=== PATIENT | female | born 1980 | race Caucasian/White ===

== ENCOUNTER 2020-11-01 12:01 | Emergency (ER) | payer OTHER ==
[~2020-11-01 12:01] MED LIST: CLEOCIN HCL300 MG PO; CLEOCIN40 GM TOP; FELDENE10 MG PO; IMODIUM CAP 2 MG2 MG PO; LODINE CAP 300300 MG PO; MUCINEX DM ER1 EACH PO; OMNICEF 300 MG300 MG PO; ZOFRAN ODT 4 MG4 MG PO
[2020-11-01] MEDS ORDERED: SUDAFED 60 MG T60 MG PO (13:38)
[2020-11-01] MEDS ORDERED: MUCINEX600 MG PO (13:38)
== END 2020-11-01 14:14 | disposition home or self-care (01) ==
LOC: ER1 12:01
DX: J02.9 Acute pharyngitis, unspecified (principal); Z88.5 Allergy status to narcotic agent; Z79.899 Other long term (current) drug therapy; Z20.822 Contact with and (suspected) exposure to COVID-19
CPT/HCPCS: 0240U; 71045; 87081; 87880; 90471; 90715; 99283

== ENCOUNTER 2021-03-09 13:31 | Emergency (ER) | payer OTHER ==
[~2021-03-09 13:31] MED LIST changes: +MUCINEX600 MG PO; +SUDAFED 60 MG T60 MG PO
[2021-03-09] MEDS ORDERED: TESSALON PERLE100 MG PO (14:52)
[2021-03-09] MEDS ORDERED: ZOFRAN ODT 4 MG4 MG SL (14:52)
[2021-03-09] MEDS ORDERED: TAMIFLU 75 MG C75 MG PO (14:52)
== END 2021-03-09 15:00 | disposition home or self-care (01) ==
LOC: ER1 13:31
DX: J10.1 Influenza due to other identified influenza virus with other respiratory manifestations (principal); F17.210 Nicotine dependence, cigarettes, uncomplicated; Z88.5 Allergy status to narcotic agent
CPT/HCPCS: 99284

== ENCOUNTER 2021-07-17 10:02 | Emergency (ER) | payer OTHER ==
[~2021-07-17 10:02] MED LIST changes: +TAMIFLU 75 MG C75 MG PO; +TESSALON PERLE100 MG PO; +ZOFRAN ODT 4 MG4 MG SL
[2021-07-17 10:33] LABS: HEMOGLOBIN 11.6 gm/dl (12.3-15.3); RED BLOOD COUNT 4.19 M/UL (4.00-5.10); WHITE BLOOD COUNT 4.2 K/UL (4.5-11.0)
[2021-07-17 10:48] LABS: BUN/CREATININE RATIO 12 (0-10)
[2021-07-17] MEDS ORDERED: MECLIZINE HCL25 MG PO (12:03)
== END 2021-07-17 12:10 | disposition home or self-care (01) ==
LOC: ER1 10:02
PROVIDERS: Family Medicine; Nurse Practitioner
DX: H65.93 Unspecified nonsuppurative otitis media, bilateral (principal); F17.200 Nicotine dependence, unspecified, uncomplicated; Z88.5 Allergy status to narcotic agent
CPT/HCPCS: 70450; 71045; 80053; 80307; 81001; 82550; 82553; 83874; 84439; 84443; 84484; 84703; 85025; 99284